=== PATIENT | female | born 1995 | race American Indian/Alaskan Native ===

== ENCOUNTER 2021-10-24 00:38 | Outpatient (CLI) | payer OTHER ==
[2021-10-24 02:03] VITALS: BP 112/71
[2021-10-24] MEDS ORDERED: LACTATED RINGERS 1,000 ML ONE (02:49)
[2021-10-24] MEDS ORDERED: LACTATED RINGERS 1,000 ML IV ONE (03:16)
[2021-10-24 05:34] LABS: Bilirubin,Urine NEG (Negative); Blood,Urine NEG (Negative); Color,Urine Yellow (Yellow); Mucus,Urine 1+ /HPF; Protein,Urine <15 mg/dL mg/dL (Negative); RBC,Urine < 1.0 /HPF (0.0-6.0); Urobilinogen,Urine < 2.0 mg/dL (<2.0)
== END 2021-10-24 06:37 | disposition home or self-care (01) ==
LOC: TRG 00:38 → APU 00:41 → TRG 06:37
PROVIDERS: ATTEND Student in an Organized Health Care Education/Training Program
DX: O26.893 Other specified pregnancy related conditions, third trimester (principal); R10.9 Unspecified abdominal pain; Z3A.36 36 weeks gestation of pregnancy
CPT/HCPCS: 81001; 96360; J7120; Q0177